=== PATIENT | male | born 1985 | race Two or more races ===

== ENCOUNTER 2025-03-09 09:00 | Emergency (ER) | payer OTHER ==
[~2025-03-09] VITALS: Ht 167.6 cm; Wt 81.6 kg
[2025-03-09] MEDS: IV NS 0.9% 1,000 ML BAG IV ONE (09:27)
[2025-03-09 14:20] VITALS: BP 126/82; TEMP 98.4; O2SAT 99
== END 2025-03-09 14:21 | disposition home or self-care (01) ==
LOC: ER 09:05
DX: F10.129 Alcohol abuse with intoxication, unspecified (principal); G93.89 Other specified disorders of brain; Z59.00 Homelessness unspecified; Y90.8 Blood alcohol level of 240 mg/100 ml or more
CPT/HCPCS: 99285; 96360; 70450; 36415; 80320; J7030; G0480